=== PATIENT | female | born 1960 | race Caucasian/White ===

== ENCOUNTER 2020-10-06 17:47 | Inpatient (IN) ==
[2020-10-06 18:26] LABS: INR 1.1; Prothrombin Time 12.9 Seconds (9.4-12.1)
[2020-10-06 18:28] LABS: Activated Partial Thrombo Time 28.5 Seconds (26.0-36.0)
[2020-10-06 18:42] LABS: Alanine Aminotransferase 15 Units/L (7-52); Albumin 4.5 g/dL (3.5-5.7); Albumin/Globulin Ratio 1.3 (1.1-2.2); Alkaline Phosphatase 84 Units/L (34-104); Aspartate Amino Transferase 15 Units/L (13-39); BUN/Creatinine Ratio 15 (6-26); Bilirubin,Total 0.7 mg/dL (0.3-1.0); Blood Urea Nitrogen 14 mg/dL (6-20); Carbon Dioxide 24 mEq/L (23-29); Chloride 102 mEq/L (98-107); Globulin 3.4 g/dL (2.4-3.5); Glucose 117 mg/dL (70-105); Lipase 25 Units/L (11-82); Osmolality,Calculated 286 (280-300); Potassium 3.4 mEq/L (3.5-5.1); Sodium 137 mEq/L (136-145); Total Protein 7.9 g/dL (6.4-8.9); eGFR For African Americans > 60 (> 60); eGFR For Non-African Americans > 60 (> 60)
[2020-10-06 19:09] LABS: Basophils % 0.2 %; Eosinophils % 0.2 %; Hematocrit 43.3 % (35.3-44.9); Hemoglobin 14.3 g/dL (11.5-15.4); Immature Granulocytes % 0.2 % (0-4); Lymphocytes # 2.3 K/mcL (0.6-4.6); Lymphocytes % 18.2 %; Mean Platelet Volume 10.9 fL (9.4-12.4); Monocytes # 0.7 K/mcL (0.0-1.3); Monocytes % 5.4 %; Neutrophils # 9.6 K/mcL (1.6-8.9); Nucleated Red Blood Cells 0.2 /100 WBC (0); Platelet Count 290 K/mcL (140-400); Red Blood Count 4.76 M/mcL (3.82-4.97); Red Cell Distribution Width 11.9 % (11.5-14.5); Segmented Neutrophils % 75.8 %; White Blood Count 12.7 K/mcL (4.3-11.1)
[2020-10-06] MEDS ORDERED: Isovue-370 500 ML BOTTLE IVP ONE (19:13)
[2020-10-06] MEDS ORDERED: Ondansetron 4 MG/2 ML VIAL IVP ONE (19:14)
[2020-10-06] MEDS ORDERED: 0.9 % Sodium Chloride 1,000 ML IV ONE (19:14)
[2020-10-06] MEDS ORDERED: MetroNIDAZOLE 500 MG/100 ML 500 MG/100 ML BAG IVPB ONE (22:18)
[2020-10-06] MEDS ORDERED: Naloxone 0.4 MG/ML INJ IVP PRN (22:26)
[2020-10-07] MEDS: MetroNIDAZOLE 500 MG/100 ML 500 MG/100 ML BAG IVPB SCH ×5 (00:33→23:39)
[2020-10-07] MEDS: Ringers Solution, Lactated 1,000 ML IVC SCH ×4 (00:33→23:38)
[2020-10-07] MEDS: Ondansetron 4 MG/2 ML VIAL IVP PRN (00:43)
[2020-10-07 05:01] LABS: Basophils % 0.2 %; Eosinophils # 0.1 K/mcL (0.0-0.6); Eosinophils % 0.8 %; Hemoglobin 12.8 g/dL (11.5-15.4); Immature Granulocytes % 0.2 % (0-4); Lymphocytes # 2.1 K/mcL (0.6-4.6); Lymphocytes % 20.7 %; Mean Corpuscular HGB Conc 32.8 g/dL (31.6-35.5); Mean Corpuscular Hemoglobin 30.5 pg (28.0-33.3); Mean Corpuscular Volume 92.9 fL (83.0-100.0); Mean Platelet Volume 10.6 fL (9.4-12.4); Monocytes # 0.6 K/mcL (0.0-1.3); Neutrophils # 7.2 K/mcL (1.6-8.9); Platelet Count 233 K/mcL (140-400); Red Cell Distribution Width 11.9 % (11.5-14.5); Segmented Neutrophils % 72.1 %
[2020-10-07 05:04] LABS: INR 1.2; Prothrombin Time 13.5 Seconds (9.4-12.1)
[2020-10-07 05:43] LABS: Alanine Aminotransferase 11 Units/L (7-52); Albumin 3.9 g/dL (3.5-5.7); Albumin/Globulin Ratio 1.4 (1.1-2.2); Alkaline Phosphatase 70 Units/L (34-104); Aspartate Amino Transferase 13 Units/L (13-39); BUN/Creatinine Ratio 11 (6-26); Bilirubin,Total 0.6 mg/dL (0.3-1.0); Blood Urea Nitrogen 9 mg/dL (6-20); Carbon Dioxide 24 mEq/L (23-29); Chloride 105 mEq/L (98-107); Chol/HDL Ratio 3.1 (0-4.9); Cholesterol 179 mg/dL (< 200); Globulin 2.7 g/dL (2.4-3.5); Glucose 105 mg/dL (70-105); HDL Cholesterol 57 mg/dL (40-59); LDL Cholesterol,Calculated 102 mg/dL (< 100); Magnesium 1.7 mg/dL (1.6-2.6); Osmolality,Calculated 283 (280-300); Potassium 3.8 mEq/L (3.5-5.1); Sodium 137 mEq/L (136-145); Total Protein 6.6 g/dL (6.4-8.9); Triglycerides 100 mg/dL (< 150); eGFR For African Americans > 60 (> 60); eGFR For Non-African Americans > 60 (> 60)
[2020-10-07] MEDS ORDERED: Pantoprazole 40 MG VIAL IVP SCH (06:00)
[2020-10-07] MEDS ORDERED: Ringers Solution, Lactated 1,000 ML IVC SCH ×2 (08:19→11:26)
[2020-10-07] MEDS ORDERED: *HR* Dextrose 50 % in Water (Vial) 50 ML VIAL IVP PRN (08:19)
[2020-10-07] MEDS ORDERED: Dextrose Gel 15 GM/37.5 ML TUBE PO PRN ×2 (08:19)
[2020-10-07] MEDS ORDERED: D5% in Water 1,000 ML IVC PRN (08:19)
[2020-10-07] MEDS: lisinopriL 10 MG TABLET PO SCH (10:49)
[2020-10-07] MEDS: Acetaminophen 325 MG TABLET PO PRN ×2 (10:49→18:39)
[2020-10-07 12:14] LABS: Hematocrit 37.4 % (35.3-44.9); Hemoglobin 12.3 g/dL (11.5-15.4)
[2020-10-07] MEDS: Insulin LISPRO 300 UNITS/3 ML VIAL SUBQ SCH ×2 (13:40→18:42)
[2020-10-07 18:17] LABS: Hematocrit 38.2 % (35.3-44.9); Hemoglobin 12.7 g/dL (11.5-15.4)
[2020-10-08 00:54] LABS: Basophils % 0.4 %; Eosinophils # 0.2 K/mcL (0.0-0.6); Eosinophils % 1.8 %; Hematocrit 35.2 % (35.3-44.9); Hemoglobin 11.6 g/dL (11.5-15.4); Immature Granulocytes % 0.2 % (0-4); Lymphocytes % 21.1 %; Mean Corpuscular Hemoglobin 30.3 pg (28.0-33.3); Mean Corpuscular Volume 91.9 fL (83.0-100.0); Mean Platelet Volume 10.7 fL (9.4-12.4); Monocytes # 0.5 K/mcL (0.0-1.3); Monocytes % 5.4 %; Neutrophils # 6.7 K/mcL (1.6-8.9); Platelet Count 217 K/mcL (140-400); Red Blood Count 3.83 M/mcL (3.82-4.97); Red Cell Distribution Width 11.9 % (11.5-14.5); Segmented Neutrophils % 71.1 %; White Blood Count 9.4 K/mcL (4.3-11.1)
[2020-10-08 01:10] LABS: BUN/Creatinine Ratio 6 (6-26); Blood Urea Nitrogen 5 mg/dL (6-20); Calcium 8.9 mg/dL (8.6-10.3); Carbon Dioxide 28 mEq/L (23-29); Chloride 105 mEq/L (98-107); Glucose 103 mg/dL (70-105); Magnesium 1.9 mg/dL (1.6-2.6); Osmolality,Calculated 284 (280-300); Phosphorous 3.4 mg/dL (2.7-4.5); Potassium 3.9 mEq/L (3.5-5.1); Sodium 138 mEq/L (136-145); eGFR For African Americans > 60 (> 60); eGFR For Non-African Americans > 60 (> 60)
[2020-10-08] MEDS: Insulin LISPRO 300 UNITS/3 ML VIAL SUBQ SCH ×5 (03:41→23:58)
[2020-10-08] MEDS: MetroNIDAZOLE 500 MG/100 ML 500 MG/100 ML BAG IVPB SCH ×4 (05:12→23:51)
[2020-10-08] MEDS: Acetaminophen 325 MG TABLET PO PRN (05:22)
[2020-10-08] MEDS ORDERED: 0.9 % Sodium Chloride 1,000 ML IVC SCH (07:45)
[2020-10-08] MEDS: lisinopriL 10 MG TABLET PO SCH (07:49)
[2020-10-09 04:28] LABS: Hematocrit 34.5 % (35.3-44.9); Hemoglobin 11.6 g/dL (11.5-15.4)
[2020-10-09] MEDS: MetroNIDAZOLE 500 MG/100 ML 500 MG/100 ML BAG IVPB SCH (05:36)
[2020-10-09] MEDS: Insulin LISPRO 300 UNITS/3 ML VIAL SUBQ SCH (05:38)
[2020-10-09] MEDS: Ondansetron 4 MG/2 ML VIAL IVP PRN (06:37)
[2020-10-09 07:38] VITALS: BP 117/76
[2020-10-09] MEDS: lisinopriL 10 MG TABLET PO SCH (08:07)
[2020-10-09] MEDS ORDERED: Ascorbic Acid 500 MG TABLET PO SCH (09:00)
[2020-10-09] MEDS ORDERED: Multivit/Ca/Min/Fe/FA 1 TAB TABLET PO SCH (09:00)
== END 2020-10-09 13:47 | disposition home or self-care (01) | DRG 392 ==
LOC: EMEROOARM 17:47 → 3ANU 17:47 → SUATTDRO 22:48 → 3ANU 10-07 00:03
PROVIDERS: ADMIT Internal Medicine; ATTEND Internal Medicine